=== PATIENT | male | born 2000 | race American Indian/Alaskan Native ===

== ENCOUNTER 2021-03-16 17:23 | Emergency (ER) | payer SELFPAY ==
[2021-03-16 17:29] VITALS: BP 134/79
--- NOTE | 2021-03-16 19:44 | Emergency Department Report ---
ED General Adult HPI - General Chief complaint: Weakness Stated complaint: FEVER Time Seen by Provider: 03/16/21 18:55 Source: patient Mode of arrival: Ambulatory Limitations: No Limitations - History of Present Illness Initial comments: 20-year-old male who denies any significant past medical history presents to the ER today with complaints of fever, weakness, fatigue and exhaustion. Patient states that his symptoms started after he walked 20 miles today outside in the sun. He states that it was very hot and he states that he started to not feel v iron well when he was walking. He states that he was exhausted, generally weak and felt very tired. He states that he did drink 1 large bottles more water while he was walking. He states that he also felt feverish but did not recheck his temperature. He did not take anything for his fever. He states that he is not homeless, the reason he was walking was to try to go donate blood and he did not realize that the place was that far. He reports rhinorrhea but denies any cough, wheezing, abdominal pain, vomiting or diarrhea. He denies any apparent ill contacts or recent travel. MD Complaint: fever, weakness, exhaustion -: This afternoon - Related Data Allergies Allergy/AdvReac Type Severity Reaction Status Date / Time No Known Allergies Allergy Verified 03/16/21 17:26 ED Review of Systems ROS: Stated complaint: FEVER Other details as noted in HPI Comment: All other systems reviewed and negative Constitutional: fever, malaise, weakness Eyes: denies: eye pain, eye discharge, vision change ENT: other (Rhinorrhea). denies: ear pain, throat pain, dental pain, hearing loss, epistaxis, congestion Respiratory: denies: cough, shortness of breath, SOB with exertion, SOB at rest, wheezing Cardiovascular: denies: chest pain, palpitations Endocrine: no symptoms reported Gastrointestinal: denies: abdominal pain, nausea, vomiting, diarrhea, constipation, hematemesis, hematochezia Genitourinary: denies: urgency, dysuria, frequency, hematuria, discharge, testicular pain, testicular mass Musculoskeletal: denies: back pain, joint swelling, arthralgia Skin: denies: rash, lesions Neurological: weakness. denies: headache, numbness, paresthesias, confusion, abnormal gait, vertigo Psychiatric: denies: anxiety, depression, auditory hallucinations, visual hallucinations, homicidal thoughts, suicidal thoughts Hematological/Lymphatic: denies: easy bleeding, easy bruising, swollen glands ED Past Medical Hx - Past Medical History Previous Medical History?: No - Surgical History Past Surgical History?: No ED Physical Exam - General Limitations: No Limitations General appearance: alert, in no apparent distress, other (Yloarzlxls-azpev-Duelozz-[place] male) - Head Head exam: Present: atraumatic, normocephalic, normal inspection - Eye Eye exam: Present: normal appearance, PERRL, EOMI Pupils: Present: normal accommodation - ENT ENT exam: Present: normal exam, mucous membranes dry - Neck Neck exam: Present: normal inspection, full ROM - Respiratory Respiratory exam: Present: normal lung sounds bilaterally. Absent: respiratory distress, wheezes, rales, rhonchi - Cardiovascular Cardiovascular Exam: Present: regular rate, normal rhythm, normal heart sounds - GI/Abdominal GI/Abdominal exam: Present: soft. Absent: distended, tenderness, guarding, rebound, rigid - Neurological Exam Neurological exam: Present: alert, oriented X3, CN II-XII intact, normal gait - Psychiatric Psychiatric exam: Present: normal affect, normal mood - Skin Skin exam: Present: intact ED Course Vital Signs 03/16/21 17:27 Temperature 98.5 F Pulse Rate 107 H Respiratory 16 Rate Blood Pressure 134/79 [Left] O2 Sat by Pulse 100 Oximetry ED Medical Decision Making - Medical Decision Making 20-year-old male who denies any significant past medical history presents to the ER today via EMS with complaints of fever, weakness, fatigue and exhaustion. Patient states that his symptoms started after he walked 20 miles today outside in the sun. He states that it was very hot and he states that he started to not feel very well when he was walking. He states that he was exhausted, generally weak and felt very tired. He states that he did drink 1 large bottles more water while he was walking. He states that he also felt feverish but did not recheck his temperature. He did not take anything for his fever. He states that he is not homeless, the reason he was walking was to try to go donate blood and he did not realize that the place was that far. He reports rhinorrhea but denies any cough, wheezing, abdominal pain, vomiting or diarrhea. He denies any apparent ill contacts or recent travel. 194: Patient currently laying in the bed resting comfortably. He states that he still feels a little tired but overall much better when he first came in. He is currently not toxic or ill-appearing and is not in any significant distress. He is neurologically intact with a normal gait. Given that he walked 20 miles, I did offer to do labs to check his electrolyte status, renal functions and offered to hydrate him some more with some IV fluids but patient stated that since we are unable to provide him a way home he does not want to get any of the done and he would rather go home. Patient stated that he was hoping that EMS would have taken him to [place] instead of coming here. Patient appears disheveled, and he does appear to have some underlying psych issues but he denies any psych disorders. He is currently mentally stable and capable of making his own medical decisions. His vital signs are stable. Patient encouraged to continue drinking lots of water at home and follow-up with his primary care doctor. Patient expressed understanding and agree with plan. Karmen ent stable at time of discharge. 1948: Went to give the nurse patient's discharge instructions and to have his vital signs re-checked before he left, but patient was observed out in the waiting room. Triage nurse told me that patient stated that he does not care about waiting for his discharge instructions and when to call a cab to just go home. Critical care attestation.: If time is entered above; I have spent that time in minutes in the direct care of this critically ill patient, excluding procedure time. ED Disposition Clinical Impression: Heat exhaustion Disposition: 01 HOME / SELF CARE / HOMELESS Is pt being admited?: No Does the pt Need Aspirin: No Condition: Stable Instructions: Heat Exhaustion Additional Instructions: I recommend he continue to drink lots of fluids. I recommend that you try not to walk so many miles in a day especially in the heat. Follow-up with your PCP tomorrow. Return to the ER if your symptoms changes or worsens in any way. Referrals: SATYA GAVIRIA MD [Staff Physician] - 3-5 Days Time of Disposition: 19:41
== END 2021-03-16 19:42 | disposition home or self-care (01) ==
LOC: ED 17:23
DX: T67.5XXA Heat exhaustion, unspecified, initial encounter (principal); X58.XXXA Exposure to other specified factors, initial encounter; Y93.89 Activity, other specified; Y92.89 Other specified places as the place of occurrence of the external cause; Y99.8 Other external cause status
CPT/HCPCS: 99282